=== PATIENT | female | born 1995 | race Caucasian/White ===

== ENCOUNTER 2018-05-25 20:40 | Emergency (ER) | payer BC ==
[~2018-05-25] VITALS: Ht 167.6 cm; Wt 53.2 kg
[2018-05-25 21:35] LABS: COLLECTION METHOD CLEAN CATCH
[2018-05-25 21:39] LABS: BASO % 0.2 % (0.0-2.0); EOS % 0.2 % (0-4.0); GRAN # 4.9 (1.4-6.5); GRAN % 77.3 % (42.2-75.2); HEMATOCRIT 39.1 % (37.0-47.0); HEMOGLOBIN 13.5 g/dl (12.5-16.0); MEAN CELL VOLUME 89 fl (80.0-100.0); MEAN CORPUSCULAR HEMOGLOBIN 31 pg (27.0-31.0); MEAN CORPUSCULAR HGB CONC 35 g/dl (33.0-37.0); MEAN PLATELET VOLUME 10.2 fl (7.4-10.4); MONO # 0.4 (0.1-0.6); PLATELET COUNT 196 K/mm3 (130-400); RED BLOOD COUNT 4.42 M/mm3 (4.10-5.30); REDCELL DISTRIBUTION WIDTH-CV 11.4 % (11.5-14.5)
[2018-05-25 21:51] LABS: BILIRUBIN,TOTAL 0.4 mg/dL (0.0-1.0); CALCIUM 8.9 mg/dL (8.4-10.2); CREATININE, serum 0.75 mg/dL (0.52-1.25); MUCOUS Present /lpf; PH 5 (5-8); POTASSIUM 3.4 mmol/L (3.4-5.0); TOTAL PROTEIN 7.2 gm/dL (6.4-8.2); URINE APPEARANCE Clear; URINE BACTERIA None Seen /hpf; URINE BILIRUBIN Negative (NEGATIVE); URINE BLOOD Negative (NEGATIVE); URINE COLOR Amber; URINE GLUCOSE Negative (NEGATIVE); URINE KETONE Trace (NEGATIVE); URINE LEUKOCYTE ESTERASE Negative (NEGATIVE); URINE NITRATE Negative (NEGATIVE); URINE PROTEIN(semi-quant) 1+ (NEGATIVE); URINE RBC 0-2 /hpf; URINE UROBILINOGEN Negative (NEGATIVE)
[2018-05-25 22:02] LABS: C-REACTIVE PROTEIN 14.6 mg/dL (0.0-0.9)
[2018-05-25] MEDS ORDERED: REGLAN 10MG10 MG/TAB PO (23:11)
[2018-05-25] MEDS ORDERED: CIPRO 500MG TA500 MG PO (23:11)
[2018-05-25] MEDS ORDERED: NORCO 325 MG-51 TAB PO (23:11)
[2018-05-25 23:23] VITALS: BP 126/83; PULSE 81; TEMP 97.7
== END 2018-05-25 23:43 | disposition home or self-care (01) ==
LOC: COL.ER 20:40
PROVIDERS: Physician Assistant
DX: K92.1 Melena (principal); R11.2 Nausea with vomiting, unspecified; Z88.0 Allergy status to penicillin
CPT/HCPCS: J2405; J2765; J3010; J7030